=== PATIENT | female | born 1995 | race Caucasian/White ===

== ENCOUNTER 2023-09-17 10:58 | Emergency (ER) | payer MEDICAID ==
[~2023-09-17] VITALS: Ht 157.5 cm; Wt 59.0 kg
[2023-09-17 11:28] VITALS: O2SAT 99
[2023-09-17] MEDS: TETANUS, DIPHTHERIA, PERTUSSIS VAC/PF 0.5ML (>10YR OLD) IM ONE (14:45)
[2023-09-17] MEDS ORDERED: BO1 TP (16:54)
[2023-09-17] MEDS: BACITRACIN ZINC OINT UDPKT TOP ONE (17:25)
[2023-09-17] MEDS: LIDOCAINE HCL/PF 1% 10 MG/ML 5ML VIAL INFIL ONE (17:25)
[2023-09-17] MEDS ORDERED: ACET325T52 MT (17:35)
[2023-09-17 17:36] VITALS: BP 122/85; PULSE 98; RESP 16
[2023-09-17 18:03] VITALS: TEMP 98.2
[2023-09-17] MEDS: ACETAMINOPHEN 650MG/20.3ML UDC PO ONE (18:03)
== END 2023-09-17 18:04 | disposition home or self-care (01) ==
LOC: ER 10:58
DX: S81.012A Laceration without foreign body, left knee, initial encounter (principal); W18.2XXA Fall in (into) shower or empty bathtub, initial encounter; Y93.89 Activity, other specified; Y92.89 Other specified places as the place of occurrence of the external cause; Y99.8 Other external cause status
CPT/HCPCS: 73562; 90715; 12001; 90471; 99283; J3490; Z7610 ×2

== ENCOUNTER 2025-05-29 18:28 | Emergency (ER) | payer SELFPAY ==
[~2025-05-29] VITALS: Ht 157.5 cm; Wt 69.0 kg
[~2025-05-29 18:28] MED LIST: ACET-3800 MT; BO1 TP
[2025-05-29 18:51] VITALS: O2SAT 99
[2025-05-29] MEDS ORDERED: LIDOCAINE HCL 1% 20ML VIAL INFIL ONE (20:45)
[2025-05-29] MEDS: ACETAMINOPHEN 500MG TABLET PO ONE (21:08)
[2025-05-29] MEDS: METOCLOPRAMIDE HCL 5MG TABLET PO ONE (21:08)
[2025-05-29] MEDS ORDERED: BO1 TP (22:10)
[2025-05-29] MEDS ORDERED: BACITRACIN ZINC OINT UDPKT TOP ONE (22:30)
[2025-05-29 22:39] VITALS: BP 111/54; PULSE 69; RESP 18; TEMP 37.1; O2SAT 99
== END 2025-05-29 22:41 | disposition home or self-care (01) ==
LOC: ER 18:28
DX: R42 Dizziness and giddiness (principal)
CPT/HCPCS: 81025; 70450; 12002; 99284; J8597; J2003; Z7610 ×2